=== PATIENT | female | born 1945 | race Caucasian/White ===

== ENCOUNTER → 2016-11-05 | Outpatient (CLI) | payer MEDICARE ==
[~2016-11-05] MED LIST: ALBUTEROL 0.5ML INH; ASPIRIN PO; ASPIRIN81 M1 PO; AZITHROMYCIN500 MG PO; BENADRYL PO; COREG3.125 MG PO; FISH OIL SOFTGE1 CA1 PO; FLAGYL PO; FOLIC ACID1 MG PO; IBUPROFEN PO; K-DUR20 ME1 PO; LASIX PO; LISINOPRIL PO; LISINOPRIL20 MG PO; MULTI-DAY1 TAB PO; MULTI-VITAMIN1 TAB PO; NITROGLYGERIN0.4 MG SL; PLAVIX PO; SPIRIVA18 MCG INH; THIAMINE HCL100 MG PO; TUMERIC PO; VITAMIN B COMP1 EACH PO
[2016-11-05 13:07] LABS: CALCIUM SERUM 9.6 mg/dL (8.4-10.2); CREATININE SERUM 0.8 mg/dL (0.6-1.4); GLOM FILT RATE Estimated 73.7 mL/min (>60); MAGNESIUM 2.1 mg/dL (1.6-3.0); POTASSIUM 3.9 mmol/L (3.5-5.1)
== END | disposition home or self-care (01) ==
LOC: CLAB 10:40
DX: I10 Essential (primary) hypertension (principal)
CPT/HCPCS: 36415; 80048; 83735